=== PATIENT | female | born 1980 | race Caucasian/White ===

== ENCOUNTER → 2017-05-11 | Outpatient (CLI) | payer BC ==
[~2017-05-11] VITALS: Ht 162.6 cm; Wt 114.5 kg
[~2017-05-11] MED LIST: CELEXA40 MG PO; COUMADIN 6MG6 MG/TAB PO; COUMADIN 77.5 MG/TAB PO; MICRONOR 5MG5 MG/TAB PO; MIRAPEX1.5 MG PO; SINGULAIR 110 MG/TAB PO
[2017-05-11 16:39] VITALS: BP 116/74; PULSE 76
== END ==
LOC: LIGHT 10:55
DX: E66.01 Morbid (severe) obesity due to excess calories (principal); Z68.41 Body mass index [BMI] 40.0-44.9, adult; Z71.3 Dietary counseling and surveillance; E78.5 Hyperlipidemia, unspecified; M54.5 Low back pain; F32.89 Other specified depressive episodes

== ENCOUNTER → 2017-05-17 | Outpatient (CLI) | payer BC | LOC: LIGHT 15:49 | DX: E66.01 Morbid (severe) obesity due to excess calories (principal); Z68.41 Body mass index [BMI] 40.0-44.9, adult; Z71.3 Dietary counseling and surveillance ==

== ENCOUNTER → 2017-06-08 | Outpatient (CLI) | payer BC ==
[~2017-06-08] VITALS: Ht 162.6 cm; Wt 111.8 kg
[2017-06-08 17:02] VITALS: BP 116/56; PULSE 76
[2017-06-28 17:35] VITALS: BP 110/60; PULSE 72
== END ==
LOC: LIGHT 16:07
DX: E66.01 Morbid (severe) obesity due to excess calories (principal); Z68.41 Body mass index [BMI] 40.0-44.9, adult; Z71.3 Dietary counseling and surveillance; E78.5 Hyperlipidemia, unspecified; M54.5 Low back pain; F32.89 Other specified depressive episodes

== ENCOUNTER → 2017-06-17 | Outpatient (CLI) | payer BC | LOC: LIGHT 16:00 → BHSO 16:00 | DX: Z01.818 Encounter for other preprocedural examination (principal) ==

== ENCOUNTER → 2017-08-03 | Outpatient (CLI) | payer BC ==
[~2017-08-03] VITALS: Ht 162.6 cm; Wt 110.7 kg
[2017-08-03 16:51] VITALS: BP 106/80; PULSE 64
== END ==
LOC: LIGHT 07-13 16:01
DX: E66.01 Morbid (severe) obesity due to excess calories (principal); Z68.41 Body mass index [BMI] 40.0-44.9, adult; Z71.3 Dietary counseling and surveillance; E78.5 Hyperlipidemia, unspecified; M54.5 Low back pain; F32.89 Other specified depressive episodes

== ENCOUNTER → 2017-09-09 | Outpatient (CLI) | payer BC ==
[~2017-09-09] VITALS: Ht 162.6 cm; Wt 110.9 kg
[~2017-09-09] MED LIST changes: +PHENTERMINE15 MG PO
[2017-09-09 17:06] VITALS: BP 110/80; PULSE 68
== END ==
LOC: LIGHT 13:56
DX: E66.01 Morbid (severe) obesity due to excess calories (principal); Z68.41 Body mass index [BMI] 40.0-44.9, adult; Z71.3 Dietary counseling and surveillance; E78.5 Hyperlipidemia, unspecified; M54.5 Low back pain; F32.89 Other specified depressive episodes

== ENCOUNTER 2018-11-08 00:11 | Emergency (ER) | payer BC ==
[~2018-11-08] VITALS: Ht 165.1 cm; Wt 115.5 kg
[2018-11-08 00:23] VITALS: TEMP 97.8
[2018-11-08 01:29] LABS: BASO # 0.1 (0.0-0.2); BASO % 0.8 % (0.0-2.0); EOS # 0.5 (0.0-0.7); EOS % 4.7 % (0-4.0); GRAN # 5.4 (1.4-6.5); GRAN % 51.2 % (42.2-75.2); HEMOGLOBIN 14.6 g/dl (12.5-16.0); LYMPH # 3.6 (1.2-3.4); LYMPH % 34.2 % (20.0-51.0); MEAN CELL VOLUME 87 fl (80.0-100.0); MEAN CORPUSCULAR HEMOGLOBIN 27 pg (27.0-31.0); MEAN CORPUSCULAR HGB CONC 32 g/dl (33.0-37.0); MEAN PLATELET VOLUME 9.1 fl (7.4-10.4); MONO # 0.9 (0.1-0.6); MONO % 8.6 % (1.7-9.3); PLATELET COUNT 334 K/mm3 (130-400); RED BLOOD COUNT 5.32 M/mm3 (4.10-5.30); REDCELL DISTRIBUTION WIDTH-CV 13.8 % (11.5-14.5)
[2018-11-08 01:36] LABS: INR 1.9 (0.8-3.0)
[2018-11-08 01:45] LABS: ALBUMIN 4.1 gm/dL (3.5-5.0); BILIRUBIN,TOTAL 0.3 mg/dL (0.0-1.0); CALCIUM 9.4 mg/dL (8.4-10.2); CREATININE, serum 1.21 mg/dL (0.52-1.25); POTASSIUM 3.6 mmol/L (3.4-5.0); TOTAL PROTEIN 7.7 gm/dL (6.4-8.2)
[2018-11-08] MEDS ORDERED: PREDNISONE20 MG PO (02:52)
[2018-11-08] MEDS ORDERED: TESSALON P100 MG/CAP PO (02:52)
[2018-11-08] MEDS ORDERED: DOXYCYCLINE 10100 MG PO (02:52)
[2018-11-08 03:29] VITALS: BP 115/72; PULSE 74
== END 2018-11-08 03:34 | disposition home or self-care (01) ==
LOC: COL.ER 00:11
PROVIDERS: Emergency Medicine
DX: J20.9 Acute bronchitis, unspecified (principal); Z79.01 Long term (current) use of anticoagulants; Z90.89 Acquired absence of other organs; Z86.718 Personal history of other venous thrombosis and embolism
CPT/HCPCS: J7030; J7512